=== PATIENT | female | born 1960 | race African-American/Black ===

== ENCOUNTER 2016-04-13 02:41 | Inpatient (IN) | payer MEDICAID ==
[2016-04-13] VITALS (9 sets, daily range): BP systolic 11–164; BP diastolic 61–80; PULSE 56–83; RESP 15–20; TEMP 97.4–98.3; O2SAT 97–100
[~2016-04-13] VITALS: Ht 160 cm; Wt 80.2 kg
[~2016-04-13 02:41] MED LIST: DIPH2%T PO; PRED20 PO
[2016-04-13] MEDS ORDERED: SODIUM CHLOR 0.9% 1000 ML INJ 1,000 ML IV SCH (03:44)
[2016-04-13] MEDS ORDERED: DIPHTH/TETANUS/ACEL PERTUSSIS (BOOSTER) 0.5 ML VIAL/PFS IM ONE ×2 (03:45→03:56)
[2016-04-13] MEDS ORDERED: SODIUM CHLORIDE 0.9% FLUSH 5 ML FLUSH IVF PRN ×2 (03:45→05:45)
[2016-04-13] MEDS ORDERED: ceFAZolin 2 GM PREMIX 50 ML IV ONE (03:45)
[2016-04-13 04:14] LABS: AUTOMATED NEUTROPHIL # 7.3 TH/MM3 (1.8-7.7); BASOPHIL # 0.1 TH/MM3 (0-0.2); BASOPHIL % 0.7 % (0.0-2.0); EOSINOPHIL % 0.3 % (0.0-4.0); HEMATOCRIT 35.6 % (35.0-46.0); HEMO FLAGS DIFF FINAL; LYMPH % 15.2 % (9.0-44.0); LYMPHOCYTE # 1.4 TH/MM3 (1.0-4.8); MEAN CELL VOLUME 94.4 FL (80.0-100.0); MEAN CORPUSCULAR HEMOGLOBIN 31.5 PG (27.0-34.0); MEAN CORPUSCULAR HGB CONC 33.4 % (32.0-36.0); MONO % 6.2 % (0.0-8.0); NEUT % 77.6 % (16.0-70.0); PLATELET COUNT 166 TH/MM3 (150-450); RED BLOOD COUNT 3.77 MIL/MM3 (4.00-5.30); RED CELL DISTRIBUTION WIDTH 13.3 % (11.6-17.2); WHITE BLOOD COUNT 9.5 TH/MM3 (4.0-11.0)
--- NOTE | 2016-04-13 04:22 | PD ---
HPI Chief Complaint: Fall Time Seen by Provider: 03:00 Travel History International Travel<30 days: No Contact w/Intl Traveler<30days: No Traveled to known affect area: No History of Present Illness HPI The patient is a 55 year old female who presents to the [facility] emergency department with a history of reportedly tripping prior to arrival and falling on her right side onto a [place] tree stump. The patient reports that she now has right sided anterior lateral lower chest wall, upper abdominal pain. She denies having any shortness of breath. She reports that she does have left upper abdominal pain. She reports that she has been drinking today, however she drinks alcohol on a daily basis. She denies hitting her head or losing consciousness. She denies having any neck pain, paresthesias, or weakness of her extremities. She denies having any extremity pain. The patient denies any recent fevers, cough, congestion, neck pain, vomiting, diarrhea, urinary symptoms, or neurologic symptoms. [facility] Past Medical History Narrative Medical The patient's past medical history is reportedly significant for daily alcohol intake. Medical History: Denies Significant Hx Diminished Hearing: No Medical other: Yes (ETOH) Immunizations Current: Yes ?: Not : 3 Para: 3 Tubal Ligation: Yes Past Surgical History Narrative Surgical The patient's past surgical history is reportedly none. Social History Alcohol Use: Yes (daily at least to 4 packs daily of beer) Tobacco Use: Yes (CHEW TOBACCO) Substance Use: Yes (MARIJUANA and cocaine) Allergies-Medications (Allergen,Severity, Reaction): Coded Allergies: No Known Allergies (Unverified , 04/13/16) Reported Meds & Prescriptions Reported Meds & Active Scripts Active Review of Systems Except as stated in HPI: all other systems reviewed are Neg General / Constitutional: No: Fever Eyes: No: Visual changes HENT: No: Headaches, Neck Stiffness, Neck Pain Cardiovascular: Positive: Chest Pain or Discomfort (chest wall pain), No: Dyspnea on exertion Respiratory: No: Shortness of Breath Gastrointestinal: Positive: Abdominal Pain, No: Nausea, Vomiting, Diarrhea Genitourinary: No: Dysuria Musculoskeletal: No: Pain Skin: No Rash Neurologic: No: Weakness, Focal Abnormalities, Change in Mentation, Slurred Speech, Sensory Disturbance Psychiatric: No: Depression Endocrine: No: Polydipsia Hematologic/Lymphatic: No: Easy Bruising Physical Exam Narrative General: The patient is a well-developed well-nourished female, uncomfortable appearing on my arrival to the room, holding her right lower chest. Head and Neck exam: Head is normocephalic atraumatic. Eyes: EOMI, pupils are equal round and reactive to light. Nose: Midline septum with pink mucous membranes Mouth: Dentition unremarkable. Moist mucus membranes. Posterior oropharynx is not erythematous. No tonsillar hypertrophy. Uvula midline. Airway patent. Neck: No palpable lymphadenopathy. No nuchal rigidity. No thyromegaly. Cardiovascular: Regular rate and rhythm without murmurs, gallops, or rubs. Lungs: Clear to auscultation bilaterally. No wheezes, rhonchi, or rales. The patient has right lower rib cage tenderness on palpation. No crepitus or step-off. No flail segment. No erythema or ecchymosis is noted. Abdomen: Soft, with tenderness on palpation in the right upper quadrant of the abdomen. No tenderness on palpation of the other 3 quadrants of the abdomen. No guarding , rebound, or rigidity. Negative Helena sign. No tenderness on palpation of McBurney's point. Normal bowel sounds are audible. Extremities: No clubbing, cyanosis, or edema. 2+ pulses in all 4 extremities. No extremity tenderness on palpation. No deformity noted. No swelling, erythema, or ecchymosis noted. Back: No spinous process tenderness to palpation. No costovertebral angle tenderness to palpation. Neurologic Exam: Cranial nerves 2-12 were intact on exam. Strength is 5/5 in all 4 extremities. No sensory deficits noted. Skin Exam: She has scattered superficial abrasions noted. skin that is warm and dry. Data Data Last Documented VS Vital Signs Date Time Temp Pulse Resp B/P Pulse Ox O2 Delivery O2 Flow Rate FiO2 04/13/16 02:43 71 18 152/79 97 Orders Basic Metabolic Panel (Bmp) (04/13/16 03:44) Complete Blood Count With Diff (04/13/16 03:44) Prothrombin Time / Inr (Pt) (04/13/16 03:44) Act Partial Throm Time (Ptt) (04/13/16 03:44) Urinalysis - C+S If Indicated (04/13/16 03:44) Chest, Single Ap (04/13/16 03:44) Pelvis, Ap Only (Routine) (04/13/16 03:44) Ct Abd/Pel W Iv Contrast(Rout) (04/13/16 03:44) Iv Access Insert/Monitor (04/13/16 03:44) Ecg Monitoring (04/13/16 03:44) Oximetry (04/13/16 03:44) Oxygen Administration (04/13/16 03:44) Cefazolin 2 Gm Premix (Ancef 2 Gm Premix (04/13/16 03:45) Uebo-Vbu-Fikkzu (Booster) Inj (Boostrix (04/13/16 03:45) Sodium Chlor 0.9% 1000 Ml Inj (Ns 1000 M (04/13/16 03:44) Sodium Chloride 0.9% Flush (Ns Flush) (04/13/16 03:45) Hepatic Functional Panel (04/13/16 03:44) Lipase (04/13/16 03:44) Mjkz-Hol-Zjizdb (Booster) Inj (Boostrix (04/13/16 03:56) Ct Brain W/O Iv Contrast(Rout) (04/13/16 04:35) Ct Cerv Spine W/O Contrast (04/13/16 04:35) Iohexol 350 Inj (Omnipaque 350 Inj) (04/13/16 05:09) Morphine Inj (Morphine Inj) (04/13/16 05:30) Ondansetron Inj (Zofran Inj) (04/13/16 05:30) Admit Order (Ed Use Only) (04/13/16 05:31) Consult Sam Gts (04/13/16 ) Labs Laboratory Tests Test 04/13/16 04/13/16 03:50 03:55 White Blood Count 9.5 TH/MM3 Red Blood Count 3.77 MIL/MM3 Hemoglobin 11.9 GM/DL Hematocrit 35.6 % Mean Corpuscular Volume 94.4 FL Mean Corpuscular Hemoglobin 31.5 PG Mean Corpuscular Hemoglobin 33.4 % Concent Red Cell Distribution Width 13.3 % Platelet Count 166 TH/MM3 Mean Platelet Volume 11.2 FL Neutrophils (%) (Auto) 77.6 % Lymphocytes (%) (Auto) 15.2 % Monocytes (%) (Auto) 6.2 % Eosinophils (%) (Auto) 0.3 % Basophils (%) (Auto) 0.7 % Neutrophils # (Auto) 7.3 TH/MM3 Lymphocytes # (Auto) 1.4 TH/MM3 Monocytes # (Auto) 0.6 TH/MM3 Eosinophils # (Auto) 0.0 TH/MM3 Basophils # (Auto) 0.1 TH/MM3 CBC Comment DIFF FINAL Differential Comment Sodium Level 142 MEQ/L Potassium Level 4.2 MEQ/L Chloride Level 106 MEQ/L Carbon Dioxide Level 23.8 MEQ/L Anion Gap 12 MEQ/L Blood Urea Nitrogen 15 MG/DL Creatinine 1.19 MG/DL Estimat Glomerular Filtration 57 ML/MIN Rate Random Glucose 81 MG/DL Calcium Level 8.5 MG/DL Total Bilirubin 0.4 MG/DL Direct Bilirubin 0.1 MG/DL Indirect Bilirubin 0.3 MG/DL Aspartate Amino Transf 68 U/L (AST/SGOT) Alanine Aminotransferase 45 U/L (ALT/SGPT) Alkaline Phosphatase 82 U/L Total Protein 8.5 GM/DL Albumin 4.0 GM/DL Lipase 97 U/L Urine Color LIGHT-YELLOW Urine Turbidity CLEAR Urine pH 5.0 Urine Specific [place] 1.012 Urine Protein 30 mg/dL Urine Glucose (UA) NEG mg/dL Urine Ketones NEG mg/dL Urine Occult Blood TRACE Urine Nitrite NEG Urine Bilirubin NEG Urine Urobilinogen LESS THAN 2.0 MG/DL Urine Leukocyte Esterase NEG Urine RBC 1 /hpf Urine WBC 4 /hpf Urine Squamous Epithelial <1 /hpf Cells Urine Hyaline Casts 1 /lpf Urine Mucus FEW /lpf Microscopic Urinalysis Comment CULT NOT INDICATED MDM Medical Decision Making Medical Screen Exam Complete: Yes Emergency Medical Condition: Yes Medical Record Reviewed: Yes Interpretation(s) Laboratory Tests Test 04/13/16 04/13/16 03:50 03:55 White Blood Count 9.5 TH/MM3 Red Blood Count 3.77 MIL/MM3 Hemoglobin 11.9 GM/DL Hematocrit 35.6 % Mean Corpuscular Volume 94.4 FL Mean Corpuscular Hemoglobin 31.5 PG Mean Corpuscular Hemoglobin 33.4 % Concent Red Cell Distribution Width 13.3 % Platelet Count 166 TH/MM3 Mean Platelet Volume 11.2 FL Neutrophils (%) (Auto) 77.6 % Lymphocytes (%) (Auto) 15.2 % Monocytes (%) (Auto) 6.2 % Eosinophils (%) (Auto) 0.3 % Basophils (%) (Auto) 0.7 % Neutrophils # (Auto) 7.3 TH/MM3 Lymphocytes # (Auto) 1.4 TH/MM3 Monocytes # (Auto) 0.6 TH/MM3 Eosinophils # (Auto) 0.0 TH/MM3 Basophils # (Auto) 0.1 TH/MM3 CBC Comment DIFF FINAL Differential Comment Sodium Level 142 MEQ/L Potassium Level 4.2 MEQ/L Chloride Level 106 MEQ/L Carbon Dioxide Level 23.8 MEQ/L Anion Gap 12 MEQ/L Blood Urea Nitrogen 15 MG/DL Creatinine 1.19 MG/DL Estimat Glomerular Filtration 57 ML/MIN Rate Random Glucose 81 MG/DL Calcium Level 8.5 MG/DL Total Bilirubin 0.4 MG/DL Direct Bilirubin 0.1 MG/DL Indirect Bilirubin 0.3 MG/DL Aspartate Amino Transf 68 U/L (AST/SGOT) Alanine Aminotransferase 45 U/L (ALT/SGPT) Alkaline Phosphatase 82 U/L Total Protein 8.5 GM/DL Albumin 4.0 GM/DL Lipase 97 U/L Urine Color LIGHT-YELLOW Urine Turbidity CLEAR Urine pH 5.0 Urine Specific [place] 1.012 Urine Protein 30 mg/dL Urine Glucose (UA) NEG mg/dL Urine Ketones NEG mg/dL Urine Occult Blood TRACE Urine Nitrite NEG Urine Bilirubin NEG Urine Urobilinogen LESS THAN 2.0 MG/DL Urine Leukocyte Esterase NEG Urine RBC 1 /hpf Urine WBC 4 /hpf Urine Squamous Epithelial <1 /hpf Cells Urine Hyaline Casts 1 /lpf Urine Mucus FEW /lpf Microscopic Urinalysis Comment CULT NOT INDICATED Last Impressions Head CT 04/13/16434 Signed Impressions: Service Date/Time: Wednesday, April 13, 2016 04:50 - CONCLUSION: 1. No acute intracranial abnormalities. There is a metallic appearing foreign body in the soft tissues of the right temporal fossa. Matthew Mandujano MD Cervical Spine CT 04/13/16 4610 Signed Impressions: Service Date/Time: Wednesday, April 13, 2016 04:51 - CONCLUSION: Mild degenerative disc disease. No acute bony abnormality. Matthew Mandujano MD Pelvis X-Ray 04/13/16 2024 Signed Impressions: Service Date/Time: Wednesday, April 13, 2016 04:19 - CONCLUSION: 1. No acute findings. Matthew Mandujano MD Chest X-Ray 04/13/16 0344 Signed Impressions: Service Date/Time: Wednesday, April 13, 2016 04:15 - CONCLUSION: 1. No acute findings. Matthew Mandujano MD Abdomen/Pelvis CT 04/13/16 0344 Signed Impressions: Service Date/Time: Wednesday, April 13, 2016 04:56 - CONCLUSION: 1. Right sided posterior ninth, 10th and 11th rib fractures with tiny right hemothorax. No pneumothorax. No visceral injuries identified within the abdomen and pelvis. Matthew Mandujano MD Differential Diagnosis Intracranial trauma, versus cervical spine trauma, versus intrathoracic trauma, versus intra-abdominal trauma Narrative Course During the course of the patients emergency department visit, the patients history, examination, and differential diagnosis were reviewed with the patient. The patient had IV access obtained and blood work sent for analysis. The patient's was on a equipment monitor phototypesetting with oximetry and blood pressure monitoring. A CT scan of the head, neck, abdomen and pelvis was ordered. A chest x-ray, pelvic x-ray was ordered. The patient was provided Ancef 2 g IV, tetanus was updated. The patient was given a normal saline 1 L IV fluid bolus. The patients laboratory studies were reviewed and remarkable for a white count of 9.5, hemoglobin 11.9, platelets 166 with 77.6 neutrophils, CMP is remarkable for creatinine 1.19, GFR 57, AST 68, total protein 8.5, lipase 97, urinalysis shows 30 protein, trace occult blood, no other acute abnormality. Radiology studies were reviewed and remarkable for a CT scan of the brain that shows no acute abnormality, metallic appearing foreign body in the soft tissues of the right temporal fossa, CT scan of the C-spine shows mild degenerative disease, no acute abnormality. Chest x-ray showed no acute abnormality, pelvis x-ray shows no acute abnormality. CT scan of the abdomen and pelvis shows a right sided posterior ninth and 10th and 11th rib fracture with a tiny right hemothorax, no pneumothorax, no visceral injuries identified within the abdomen and pelvis. A call was placed out to the trauma surgeon. He did agree to admit the patient for continued evaluation and treatment at this time. The patient was placed on supplemental oxygen at 2 L nasal cannula. The patient was given morphine and Zofran for pain and nausea. The patients results were discussed with the patient, including the plan of care. I explained that further testing and/ or monitoring is indicated based on the patients history, examination, and/ or laboratory findings. Therefore, I recommended admission for additional evaluation. The patient expressed understanding and was agreeable with this plan. The patient was admitted to the hospital in stable condition and sent to a bed under the care of the [facility]. Physician Communication Physician Communication The patient's case was discussed with Dr. Irwin who did agree to admit the patient for further evaluation and treatment at this time. Diagnosis Primary Impression: Fall Qualified Code: W19.XXXA - Fall, initial encounter Additional Impressions: Abrasions of multiple sites Right-sided chest wall pain Abdominal pain Qualified Code: R10.11 - Right upper quadrant abdominal pain Multiple rib fractures Qualified Code: S22.41XA - Closed fracture of multiple ribs of right side, initial encounter Hemothorax Hemothorax on right Admitting Information Admitting Physician Requests: Dana Mckinney MD Apr 13, 2016 04:22
[2016-04-13 04:24] LABS: BLOOD, URINE TRACE (NEG); COMMENT (UR) CULT NOT INDICATED; CULTURE IF INDICATED CULT NOT INDICATED; GLUCOSE,URINE NEG (NEG); HYALINE CAST, URINE 1 /lpf (RARE); KETONE, URINE NEG (NEG); MUCUS URINE FEW /lpf (OCC); NITRITE,URINE NEG (NEG); SQUAMOUS EPITHELIAL CELL URINE <1 /hpf (0-5); URINE COLOR LIGHT-YELLOW (YELLW/STRAW)
[2016-04-13 04:27] LABS: BICARBONATE 23.8 MEQ/L (21.0-32.0); POTASSIUM 4.2 MEQ/L (3.5-5.1)
[2016-04-13 04:30] LABS: INDIRECT BILIRUBIN 0.3 MG/DL (0.0-0.8); TOTAL BILIRUBIN ADULT 0.4 MG/DL (0.2-1.0)
--- NOTE | 2016-04-13 05:05 | RADRPT ---
EXAM DATE/TIME: 04/13/2016 04:15 [facility] COMPARISON: CHEST SINGLE AP, January 14, 2015, 15:30. INDICATIONS : Fall. Mid chest pain. MEDICAL HISTORY : None. SURGICAL HISTORY : None. ENCOUNTER: Initial ACUITY: 1 day PAIN SCORE: 6/10 LOCATION: Bilateral chest FINDINGS: A single view of the chest demonstrates no focal consolidation or effusion. No pneumothorax. Mildly t ortuous aorta. Heart size within normal limits. CONCLUSION: 1. No acute findings. Matthew Mandujano MD on April 13, 2016 at 5:03 Board Certified Radiologist. This report was verified electronically.
--- NOTE | 2016-04-13 05:06 | RADRPT ---
EXAM DATE/TIME: 04/13/2016 04:19 [facility] COMPARISON: No previous studies available for comparison. INDICATIONS : Fall. Pelvic pain. MEDICAL HISTORY : None. SURGICAL HISTORY : None. ENCOUNTER: Initial ACUITY: 1 day PAIN SCORE: 7/10 LOCATION: Bilateral pelvis FINDINGS: A single frontal view of the pelvis demonstrates nonspecific bowel gas pattern without obstruction or free air. No acute bony abnormality. CONCLUSION: 1. No acute findings. Matthew Mandujano MD on April 13, 2016 at 5:04 Board Certified Radiologist. This report was verified electronically.
[2016-04-13] MEDS ORDERED: IOHEXOL 350 MG/ML 10 ML VIAL (for RAD DIAG) IV ONE (05:09)
--- NOTE | 2016-04-13 05:11 | RADRPT ---
EXAM DATE/TIME: 04/13/2016 04:50 [facility] COMPARISON: No previous studies available for comparison. INDICATIONS : Fall RADIATION DOSE: 56.35 CTDIvol (mGy) MEDICAL HISTORY : None SURGICAL HISTORY : None. ENCOUNTER: Initial ACUITY: 1 day PAIN SCALE: 4/10 LOCATION: Bilateral cranial TECHNIQUE: Multiple contiguous axial images were obtained of the head. Using automated exposure control and adj ustment of the mA and/or kV according to patient size, radiation dose was kept as low as reasonably a chievable to obtain optimal diagnostic quality images. FINDINGS: CEREBRUM: The ventricles are normal for age. No evidence of midline shift, mass lesion, hemorrhage or acute in farction. No extra-axial fluid collections are seen. POSTERIOR FOSSA: The cerebellum and brainstem are intact. The 4th ventricle is midline. The cerebellopontine angle i s unremarkable. EXTRACRANIAL: The visualized portion of the orbits is intact. SKULL: The calvaria is intact. No evidence of skull fracture. CONCLUSION: 1. No acute intracranial abnormalities. There is a metallic appearing foreign body in the soft tissue s of the right temporal fossa. Matthew Mandujano MD on April 13, 2016 at 5:07 Board Certified Radiologist. This report was verified electronically.
--- NOTE | 2016-04-13 05:16 | RADRPT ---
EXAM DATE/TIME: 04/13/2016 04:51 [facility] COMPARISON: No previous studies available for comparison. INDICATIONS : Fall. RADIATION DOSE: 34.77 CTDIvol (mGy) MEDICAL HISTORY : None SURGICAL HISTORY : None. ENCOUNTER: Initial ACUITY: 1 day PAIN SCALE: 4/10 LOCATION: neck TECHNIQUE: Volumetric scanning of the cervical spine was performed. Multiplanar reconstructions i n the sagittal, coronal and oblique axial planes were performed. Using automated exposure control a nd adjustment of the mA and/or kV according to patient size, radiation dose was kept as low as reason ably achievable to obtain optimal diagnostic quality images. FINDINGS: VERTEBRAE: Normal vertebral body height. ALIGNMENT: No evidence of subluxation. C2-C3: The bony spinal canal is normal in size. No evidence of disc bulge or herniation. The neura l foramina are bilaterally patent. C3-C4: The bony spinal canal is normal in size. No evidence of disc bulge or herniation. The neura l foramina are bilaterally patent. C4-C5: The bony spinal canal is normal in size. No evidence of disc bulge or herniation. The neura l foramina are bilaterally patent. C5-C6: The bony spinal canal is normal in size. No evidence of disc bulge or herniation. The neura l foramina are bilaterally patent. C6-C7: The bony spinal canal is normal in size. No evidence of disc bulge or herniation. The neura l foramina are bilaterally patent. C7-T1: The bony spinal canal is normal in size. No evidence of disc bulge or herniation. The neura l foramina are bilaterally patent. CONCLUSION: Mild degenerative disc disease. No acute bony abnormality. Matthew Mandujano MD on April 13, 2016 at 5:10 Board Certified Radiologist. This report was verified electronically.
--- NOTE | 2016-04-13 05:24 | RADRPT ---
EXAM DATE/TIME: 04/13/2016 04:56 [facility] COMPARISON: No previous studies available for comparison. INDICATIONS : Fall, right sided abdomen pain IV CONTRAST: 95 cc Omnipaque 350 (iohexol) IV ORAL CONTRAST: No oral contrast ingested. RADIATION DOSE: CTDIvol (mGy) MEDICAL HISTORY : None SURGICAL HISTORY : None. ENCOUNTER: Initial ACUITY: 1 day PAIN SCALE: 4/10 LOCATION: Right abdomen TECHNIQUE: Volumetric scanning of the abdomen and pelvis was performed. Using automated exposure control and ad justment of the mA and/or kV according to patient size, radiation dose was kept as low as reasonably achievable to obtain optimal diagnostic quality images. FINDINGS: There are fractures of the right posterior ninth, 10th and 11th ribs with a tiny right hemothorax. De pendent atelectasis present in both lungs. No pneumothorax. Fatty liver noted. Spleen, adrenals, kidneys and pancreas unremarkable. No calcified gallstones or bi liary ductal dilatation. No free fluid. No bowel obstruction. No free air. CONCLUSION: 1. Right sided posterior ninth, 10th and 11th rib fractures with tiny right hemothorax. No pneumothor ax. No visceral injuries identified within the abdomen and pelvis. Matthew Mandujano MD on April 13, 2016 at 5:19 Board Certified Radiologist. This report was verified electronically.
[2016-04-13] MEDS ORDERED: MORPHINE SULFATE 4 MG/ML INJ IV PUSH ONE (05:30)
[2016-04-13] MEDS ORDERED: ONDANSETRON HCL 4 MG/2 ML VIAL IV PUSH ONE (05:30)
[2016-04-13] MEDS ORDERED: ACETAMINOPHEN/HYDROcodone 325 MG/5 MG TAB PO PRN ×2 (05:45)
[2016-04-13] MEDS ORDERED: ONDANSETRON HCL 4 MG/2 ML VIAL IV PRN (05:45)
[2016-04-13] MEDS ORDERED: CHLORHEXIDINE GLUCONATE 2 % 1 PACK (2 CLOTHS) TOP PRN (05:45)
[2016-04-13] MEDS ORDERED: HYDROmorphone HCL PF 1 MG/ML VIAL IVP PRN (05:45)
[2016-04-13] MEDS ORDERED: ENALAPRILAT 1.25 MG/ML VIAL IV PRN (05:45)
[2016-04-13] MEDS ORDERED: MISCELLANEOUS NURSING INFORMATION XX SCH (05:45)
[2016-04-13] MEDS: PANTOPRAZOLE SODIUM 40 MG VIAL IVP SCH (06:41)
[2016-04-13] MEDS: SODIUM CHLOR 0.9% 1000 ML INJ 1,000 ML IV SCH ×2 (06:41→15:18)
[2016-04-13] MEDS: KETOROLAC TROMETHAMINE 30 MG/ML (IVP) VIAL IVP SCH ×4 (06:42→23:59)
[2016-04-13] MEDS: FOLIC ACID 1 MG TAB PO SCH (09:41)
[2016-04-13] MEDS: MULTIVITAMIN TAB PO SCH (09:41)
[2016-04-13] MEDS: DOCUSATE SODIUM 100 MG CAP PO SCH ×2 (09:41→20:45)
[2016-04-13] MEDS: THIAMINE HCL 100 MG TAB PO SCH (09:42)
--- NOTE | 2016-04-13 10:35 | MH ---
cc: MARY WOODALL MD DATE OF ADMISSION 04/13/2016 CHIEF COMPLAINT Status post fall, rib fracture, tiny pneumothorax. HISTORY OF PRESENT ILLNESS The patient is a 55-year-old female who presented with complaints status post trip and fall. The patient states she was walking, she was intoxicated, slipped and fell over of [place] tree stump. She is complaining of right-sided chest wall pain and upper abdominal pain. She is not having any shortness of breath or hemodynamic instability. She came to the emergency department for further evaluation with a CT scan showing right-sided rib fractures 9-11 and tiny hemothorax. Surgery was consulted for further treatment and evaluation. On my exam, the patient is answering questions appropriately. She is a GCS of 15, however she does appear to have some intoxication and admits to drinking tonight. She is complaining of persistent 5/10 right-sided chest wall and abdominal pain and states the pain is sharp, better with pain medication. She has never had a situation like this before. She denies any loss of consciousness and recalled the entire event. PAST MEDICAL HISTORY The patient with history of rash and alcohol abuse. PAST SURGICAL HISTORY The patient has had no surgeries. SOCIAL HISTORY Positive smoking. Positive ETOH, positive THC, positive cocaine. ALLERGIES The patient reports no allergies. MEDICATIONS Please see EMR. FAMILY HISTORY The patient denies diabetes or hypertension. REVIEW OF SYSTEMS GENERAL: Intoxication. HEENT: Denies eye pain, ear pain. CARDIAC: Denies palpitations. Complains of right chest wall pain. RESPIRATORY: Denies shortness of breath or cough. ABDOMEN: Complained of mild right-sided abdominal pain. Denies nausea or vomiting. SKIN: Denies rash or lesion. NEUROLOGIC: Denies weakness or numbness. ENDOCRINE: Denies polyuria or polydipsia. PSYCHIATRIC: Denies change in mood, positive altered mental status due to ETOH. HEMATOLOGIC: Denies bruising or bleeding. PHYSICAL EXAMINATION GENERAL: The patient is in no acute distress. VITAL SIGNS: Temperature 98.1, pulse 71, respirations 18, blood pressure 152/79, pulse ox 97% saturation. HEENT: PERRLA, EOMI. Pupils equal, reactive. Moist mucous membranes. NECK: Supple. Trachea midline. Clavicles nontender. HEART: S1-S2 regular rhythm. LUNGS: Bilateral expansion, clear. Positive tenderness right-sided chest wall. ABDOMEN: Soft, nontender. Nondistended, minimal tenderness on right. EXTREMITIES: No significant evidence of bruising or abrasions. BACK: Nontender. No step off. NEUROLOGIC: 5/5 motor all extremities. GCS of 15. SKIN: Minimal abrasions, small tiny. LABORATORY AND DIAGNOSTIC DATA WBC 9.5, hemoglobin 11.9, hematocrit 35.6, platelet count 166. Sodium 142, potassium 4.2, chloride 106, BUN 15, creatinine 1.1, T-bili is 0.4, AST 60, ALT 45, lipase 97. PT/INR pending. IMAGING STUDIES Reviewed by myself. CT HEAD The temporal fossa, metallic body no evidence of intracranial abnormality or hemorrhage. CT C-spine DJD, no acute fracture. CT abdomen and pelvis, right-sided posterior 9-11 rib fractures, tiny hemothorax, no pneumothorax. Chest x-ray, no acute fractures noted. Pelvic x-ray, no fractures. ASSESSMENT The patient is 55 status post trip and fall from tree stump, positive ETOH, positive right-sided 9-11 rib fracture and tiny hemothorax. PLAN After a full clinical radiologic and laboratory workup, the patient's above-named issue including rib fractures discussed with the patient, the fact that there is likely nonoperative treatment from the rib fractures, although rib fractures are very painfulness and can last for several weeks. We will give the patient adequate IV pain control and transition to p.o. pain control as tolerated. For the hemothorax, we will check a chest x-ray in the morning and repeat hemoglobins to assess for ongoing possible further bleeding. The hemothorax appears small and will likely not need any further intervention, but we will watch the patient closely if indeed the patient does warrant this. The patient does have positive ETOH for which we will monitor closely. Evidently the patient has history of chronic ETOH. We will monitor her closely for any signs of DTs and start a CIWA protocol call if needed. We will continue IV fluids. The patient can have diet and again adequate pain control and will continue to monitor the patient for any ongoing evolution of discovery of further injury. MD RADHA Rodgers/HIRAM /9:56 AM /10:11 AM
[2016-04-13 15:55] LABS: APTT (PATIENT) 25.2 SEC (24.3-30.1); INTERNATIONAL NORMALIZED RATIO 0.9 RATIO; PROTHROMBIN TIME - PATIENT 10.1 SEC (9.8-11.6)
[2016-04-13] MEDS ORDERED: DOCU1CAP39 PO (21:19)
[2016-04-14 00:55] VITALS: BP 151/77; PULSE 61; RESP 18; TEMP 97.9; O2SAT 100
[2016-04-14 03:59] VITALS: BP 143/76; PULSE 53; RESP 18; TEMP 97.5; O2SAT 100
[2016-04-14] MEDS ORDERED: CHLORHEXIDINE GLUCONATE 2 % 1 PACK (2 CLOTHS) TOP SCH (04:00)
[2016-04-14] MEDS: KETOROLAC TROMETHAMINE 30 MG/ML (IVP) VIAL IVP SCH ×2 (06:23→11:41)
[2016-04-14] MEDS: PANTOPRAZOLE SODIUM 40 MG VIAL IVP SCH (06:23)
--- NOTE | 2016-04-14 08:12 | RADRPT ---
EXAM DATE/TIME: 04/14/2016 07:39 [facility] COMPARISON: CHEST SINGLE AP, April 13, 2016, 4:15. INDICATIONS : Right chest pain, Fell MEDICAL HISTORY : None. SURGICAL HISTORY : None. ENCOUNTER: Subsequent ACUITY: 2 days PAIN SCORE: 6/10 LOCATION: Right chest FINDINGS: A single view of the chest demonstrates left basilar density. Heart normal in size. The cardiomedias tinal contours are unremarkable. Osseous structures are intact. CONCLUSION: 1. Left basilar density likely atelectasis. Tony Haas MD on April 14, 2016 at 8:10 Board Certified Radiologist. This report was verified electronically.
[2016-04-14 08:31] LABS: AUTOMATED NEUTROPHIL # 2.3 TH/MM3 (1.8-7.7); BASOPHIL % 0.7 % (0.0-2.0); EOSINOPHIL # 0.1 TH/MM3 (0-0.4); EOSINOPHIL % 2.5 % (0.0-4.0); HEMATOCRIT 32.3 % (35.0-46.0); HEMO FLAGS DIFF FINAL; LYMPH % 30.6 % (9.0-44.0); LYMPHOCYTE # 1.2 TH/MM3 (1.0-4.8); MEAN CELL VOLUME 96.5 FL (80.0-100.0); MEAN CORPUSCULAR HEMOGLOBIN 30.9 PG (27.0-34.0); MONO % 10.1 % (0.0-8.0); NEUT % 56.1 % (16.0-70.0); PLATELET COUNT 143 TH/MM3 (150-450); RED BLOOD COUNT 3.35 MIL/MM3 (4.00-5.30); RED CELL DISTRIBUTION WIDTH 13.5 % (11.6-17.2)
[2016-04-14 08:48] VITALS: BP 182/94; PULSE 70; RESP 18; TEMP 97.1; O2SAT 99
[2016-04-14 08:49] LABS: BICARBONATE 25.3 MEQ/L (21.0-32.0); POTASSIUM 4.1 MEQ/L (3.5-5.1)
[2016-04-14 08:52] VITALS: O2SAT 98
[2016-04-14] MEDS: FOLIC ACID 1 MG TAB PO SCH (09:00)
[2016-04-14] MEDS: DOCUSATE SODIUM 100 MG CAP PO SCH (09:00)
[2016-04-14] MEDS: THIAMINE HCL 100 MG TAB PO SCH (09:00)
[2016-04-14] MEDS: MULTIVITAMIN TAB PO SCH (09:00)
[2016-04-14] MEDS ORDERED: NORC5TAB PO (11:24)
[2016-04-14] MEDS: SODIUM CHLOR 0.9% 1000 ML INJ 1,000 ML IV SCH (11:42)
[2016-04-14] MEDS ORDERED: IBUP-232 PO (12:50)
[2016-04-14 13:04] VITALS: BP 145/80; PULSE 62; RESP 18; TEMP 97.6; O2SAT 95
--- NOTE | 2016-04-14 18:41 | HHI.DS ---
Discharge Summary Admission Date Apr 13, 2016 at 05:34 Discharge Date: Apr 14, 2016 Admitting Diagnosis Multiple rib fx, tiny hemothorax (1) Hemothorax Diagnosis: Principal (2) Abdominal pain Diagnosis: Principal (3) Fall Diagnosis: Principal (4) Abrasions of multiple sites Diagnosis: Principal (5) Right-sided chest wall pain Diagnosis: Principal (6) Hemothorax on right Diagnosis: Principal (7) Multiple rib fractures Diagnosis: Principal Brief History Fall. CBC/BMP: 04/14/16 0720 04/14/16 0720 Significant Findings Laboratory Tests Test 04/13/16 04/13/16 04/14/16 03:50 03:55 07:20 Red Blood Count 3.77 MIL/MM3 3.35 MIL/MM3 (4.00-5.30) (4.00-5.30) Mean Platelet Volume 11.2 FL (7.0-11.0) Neutrophils (%) (Auto) 77.6 % (16.0-70.0) Creatinine 1.19 MG/DL (0.50-1.00) Estimat Glomerular Filtration 57 ML/MIN (>89) 80 ML/MIN (>89) Rate Aspartate Amino Transf 68 U/L (15-37) (AST/SGOT) Total Protein 8.5 GM/DL (6.4-8.2) Urine Protein 30 mg/dL (NEG-TRACE) Urine Occult Blood TRACE (NEG) Urine Mucus FEW /lpf (OCC) Hemoglobin 10.3 GM/DL (11.6-15.3) Hematocrit 32.3 % (35.0-46.0) Platelet Count 143 TH/MM3 (150-450) Monocytes (%) (Auto) 10.1 % (0.0-8.0) Chloride Level 109 MEQ/L (98-107) Imaging Last Impressions Chest X-Ray 04/14/16 0000 Signed Impressions: Service Date/Time: April 07:39 - CONCLUSION: 1. Left basilar density likely atelectasis. Tony Haas MD Head CT 04/13/16 0435 Signed Impressions: Service Date/Time: Wednesday, April 13, 2016 04:50 - CONCLUSION: 1. No acute intracranial abnormalities. There is a metallic appearing foreign body in the soft tissues of the right temporal fossa. Matthew Mandujano MD Cervical Spine CT 04/13/16 0435 Signed Impressions: Service Date/Time: Wednesday, April 13, 2016 04:51 - CONCLUSION: Mild degenerative disc disease. No acute bony abnormality. Matthew Mandujano MD Pelvis X-Ray 04/13/164 Signed Impressions: Service Date/Time: Wednesday, April 13, 2016 04:19 - CONCLUSION: 1. No acute findings. Matthew Mandujano MD Abdomen/Pelvis CT 04/13/164 Signed Impressions: Service Date/Time: Wednesday, April 13, 2016 04:56 - CONCLUSION: 1. Right sided posterior ninth, 10th and 11th rib fractures with tiny right hemothorax. No pneumothorax. No visceral injuries identified within the abdomen and pelvis. Matthew Mandujano MD PE at Discharge GENERAL: This is a 55 yr old AA female asleep in bed. Arouses easily. SKIN: Warm and dry. HEAD: Normocephalic. EYES: PERRLA. NECK: Supple, trachea midline. No JVD or lymphadenopathy. CARDIOVASCULAR: Regular rate and rhythm without murmurs, gallops, or rubs. RESPIRATORY: Breath sounds equal bilaterally. No accessory muscle use. GASTROINTESTINAL: BS + Abdomen soft, non-tender, nondistended. MUSCULOSKELETAL: No cyanosis, or edema. Hospital Course Trip and fall, onto a [place] tree stump. She landed on her right side. She denies hitting her head. No LOC. She is complaining of right sided anterior lateral lower chest wall pain and upper abdominal pain. INJURIES: Right posterior rib fractures(9, 10 11) Tiny right hemothorax (NO PTX) PMHX: Daily alcohol. Chewing tobacco, marijuana and cocaine. Diet: Regular PULM: IS Pain: [place]. Toradol IV. Activity: OOB. PT ordered. Multivitamins GI: Protonix IV Bowel: Colace. MOM. LBM: 0 DVT: SCD's The patient is now tolerating a po diet. Eating and drinking well. Pain is being managed well with PO pain medications, and patient is being a provided with a script for pain meds upon discharge. (NO driving while taking narcotic pain medication enforced to patient.) Pt is having regular bowel movements, and have recommended to patient to continue with stool softeners while taking narcotic pain medications to prevent constipation. Pt has been participating in PT and OT while admitted at [facility] and has been ambulating with their assistance and independently. All follow up appointments have been provided and discussed with the patient. It is recommended that the patient keeps all his follow up appointments for continued recovery. Therefore, the patient is stable to be safely discharged from a trauma surgery standpoint. Thank you for allowing us to participate in her care. We wish Stacy the best in her recovery. Pt Condition on Discharge: Stable Discharge Disposition: Discharge Home Discharge Instructions DIET: Follow Instructions for: As Tolerated, No Restrictions Activities you can perform: Regular-No Restrictions, Shower Only-No Bath Attending Statement The exam, history, and the medical decision-making described in the above note were completed with the assistance of the mid-level provider. I reviewed and agree with the findings presented. I attest that I had a [id number] encounter with the patient on the same day, and personally performed and documented my assessment and findings in the medical record. Radha Marin Apr 14, 2016 18:40 Erick Arevalo MD Apr 17, 2016 11:36
[2016-04-14] MEDS ORDERED: MAGNESIUM HYDROXIDE SUSP 30 ML CUP PO SCH (21:00)
--- NOTE | 2016-04-20 09:26 | PQ ---
Physician Query Response Document PATIENT: PETRA MEDINA : 1960 ADMIT DATE: 04/13/2016 5:34 AM DISCH DATE: 04/14/2016 1:52 PM RESPONDING PROVIDER #: [email or web address] QUERY TEXT: Clinical Significance The clinical indicators documented above requires documentation to state the clinical significance - DEPENDANCY OF SUBSTANCES Please respond and also state in your next progress note whether the condition is: -- Clinically insignificant -- Clinically significant, and please also state why it is clinically significant -- Unable to determine clinical significance -- Other, please specify The patient's Clinical Indicators include: 04/13/16 ADMISSION DX: RT HEMOTHORAX RT RIB 9 -11 FRACTURES PER ED DOCUMENTATION RE; SOCIAL HX - Alcohol Use: Yes (daily at least to 4 packs daily of beer) Tobacco Use: Yes (CHEW TOBACCO) Substance Use: Yes (MARIJUANA and cocaine) PER H PLAN STATES - Evidently the patient has history of chronic ETOH Query created by: Yajaira Connelly on 04/14/2016 12:32 PM RESPONSE TEXT: History of etoh, thc, cocaine Electronically signed by: Sunny Irwin MD 04/20/2016 9:22 AM
== END 2016-04-14 13:52 | disposition home or self-care (01) | DRG 183 ==
LOC: NEPE 02:41 → OBSVTOIN 05:34 → NEDA 05:34 → NEDH 13:17 → N05B 16:47
PROVIDERS: ADMIT Surgery; ATTEND Surgery
DX: S22.41XA Multiple fractures of ribs, right side, initial encounter for closed fracture (principal); S27.1XXA Traumatic hemothorax, initial encounter; W01.0XXA Fall on same level from slipping, tripping and stumbling without subsequent striking against object, initial encounter; Y92.9 Unspecified place or not applicable; Z72.0 Tobacco use; F10.20 Alcohol dependence, uncomplicated; F14.90 Cocaine use, unspecified, uncomplicated; F12.90 Cannabis use, unspecified, uncomplicated
CPT/HCPCS: 70450; 71010; 72125; 72170; 74177; 80048; 80076; 81001; 83690; 85025; 85610; 85730; 90471; 90715; 94150; 96365; C9113; J0690; J1885; J2270; J2405; J7030; Q9967